=== PATIENT | female | born 1955 | race Caucasian/White ===

== ENCOUNTER 2024-07-14 23:21 | Inpatient (IN) | payer MEDICARE, SELFPAY ==
[2024-07-15 03:25] VITALS: BMI 31.3
[2024-07-15] MEDS ORDERED: Acetaminophen 650 MG Suppository PR PRN (03:43)
[2024-07-15] MEDS ORDERED: Ondansetron ODT 4 MG TAB PO PRN (03:43)
[2024-07-15] MEDS ORDERED: Ondansetron PF 4 MG/2 ML Vial IVP PRN (03:43)
[2024-07-15] MEDS ORDERED: Acetaminophen 325 MG TAB PO PRN (03:43)
[2024-07-15] MEDS ORDERED: Ipratropium/Albuterol 3 ML NEB EZPAP PRN (03:49)
[2024-07-15] MEDS ORDERED: Ipratropium/Albuterol 3 ML NEB NEB PRN (03:49)
[2024-07-15 04:27] LABS: #Basophils Less than 0.03 10x3/uL (0.0-0.2); #Eosinophils Less than 0.03 10x3/uL (0.0-0.7); %Basophils 0.1 % (0.0-1.0); %Lymphocytes 6.6 % (21.0-51.0); %Monocytes 1.1 % (0.0-10.0); %Neutrophils 91.1 % (42.0-75.0); Hematocrit 42.5 % (36.0-47.0); Hemoglobin 13.7 g/dL (12.0-16.0); Mean Corpuscular HGB CONC 32.2 g/dL (32.0-36.0); Mean Corpuscular Hemoglobin 28.8 pg (27.0-31.0); Mean Corpuscular Volume 89.3 fL (78.0-98.0); Mean Platelet Volume 9.9 fL (7.4-10.4); Platelet Count 356 10x3/uL (130-400); RBC Distribution Width 14.8 % (11.5-14.5); Red Blood Cell (RBC) Count 4.76 mill/uL (4.20-5.40)
[2024-07-15 04:51] LABS: Anion Gap 14 mmol/L (10-20); BUN (Urea Nitrogen) 25 mg/dL (9.8-20.1); Calc. Creatinine Clearance 47 mL/min (70-130); Calcium 8.7 mg/dL (7.8-10.44); Carbon Dioxide 17 mmol/L (23-31); Chloride 104 mmol/L (98-107); Estimated GFR 45; Glucose 160 mg/dL (80-115); Potassium 4.3 mmol/L (3.5-5.1); Sodium 131 mmol/L (136-145)
[2024-07-15 05:52] LABS: Troponin I 2.877 ng/mL (< 0.028)
[2024-07-15] MEDS: Famotidine/PF 20 mg/2ml Vial SLOW IVP SCH (07:18)
[2024-07-15] MEDS: Ipratropium/Albuterol 3 ML NEB NEB SCH (07:44)
[2024-07-15] MEDS: Mometasone 200 MCG/Formoterol 5 MCG 120 PUFF INHALER INH SCH (07:46)
[2024-07-15 08:03] LABS: Hematocrit 41.1 % (36.0-47.0); Hemoglobin 13.4 g/dL (12.0-16.0); Platelet Count 361 10x3/uL (130-400)
[2024-07-15 08:34] LABS: Troponin I 2.657 ng/mL (< 0.028)
[2024-07-15] MEDS ORDERED: Iopamidol-370 76% 500 ML MDV (1 ML CHARGE) ONE (09:09)
[2024-07-15] MEDS: Furosemide 40 MG (4 mL) VIAL SLOW IVP SCH ×2 (09:10→16:01)
[2024-07-15] MEDS: Aspirin Chewable 81 MG TAB PO SCH (09:10)
[2024-07-15] MEDS: Famotidine 20 MG TAB PO SCH (09:10)
[2024-07-15] MEDS: Doxycycline 100 MG CAP PO SCH (09:10)
[2024-07-15 09:17] LABS: Actual Bicarbonate (HCO3a) 18.7 mEq/L (22-28); Base Excess (BEa) -7.2 mEq/L (-2.0 to +3.0); CO2 Tension 39.2 mmHg (35.0-45.0); Calcium, Ionized (arterial) 1.16 mmol/L (1.12-1.30); Carboxyhemoglobin (COHb) 0.5 gm% (0.0-3.0); Hematocrit-ABG 42 % (36.0-47.0); Hemoglobin (Hb) 14.3 g/dL (12.0-16.0); Potassium - ABG Lab 4.52 mmol/L (3.70-5.30); pH, Arterial 7.297 (7.35-7.45)
[2024-07-15 09:21] LABS: Puncture Site Right Brachial art
[2024-07-15] MEDS: Heparin 25,000 units/D5W 500 ML IVPB SCH (09:22)
[2024-07-15] MEDS: Heparin 10,000 UNITS/ 10 ML VIAL SLOW IVP SCH (09:22)
[2024-07-15] MEDS: ALPRAZolam 0.5 MG TAB PO SCH (10:33)
[2024-07-15 14:21] LABS: Critical Call Chem Troponin I RESULT DECREASING
[2024-07-15 20:41] LABS: Critical Call Chem Troponin I RESULT DECREASING; Troponin I 2.055 ng/mL (< 0.028)
[2024-07-15] MEDS ORDERED: Azithromycin 500 MG in Sodium Chloride 0.9% 250 ML 250 ML IVPB SCH (21:00)
[2024-07-15] MEDS: Guaifenesin DM 100-10/5 ML UDCUP PO PRN (21:21)
[2024-07-15] MEDS: cefTRIAXone\\ROCEPHIN 1 GM in Sodium Chloride 0.9% 100 ML IVPB SCH (21:21)
[2024-07-15] MEDS: hydrOXYzine 25 MG TAB PO PRN (21:21)
[2024-07-16 04:36] LABS: #Basophils Less than 0.03 10x3/uL (0.0-0.2); #Eosinophils Less than 0.03 10x3/uL (0.0-0.7); %Basophils 0.1 % (0.0-1.0); %Lymphocytes 4.6 % (21.0-51.0); %Monocytes 6.7 % (0.0-10.0); %Neutrophils 87.8 % (42.0-75.0); Hematocrit 39.6 % (36.0-47.0); Hemoglobin 12.8 g/dL (12.0-16.0); Mean Corpuscular HGB CONC 32.3 g/dL (32.0-36.0); Mean Corpuscular Hemoglobin 28.4 pg (27.0-31.0); Mean Platelet Volume 9.8 fL (7.4-10.4); Platelet Count 323 10x3/uL (130-400); RBC Distribution Width 14.8 % (11.5-14.5)
[2024-07-16 05:02] LABS: Anion Gap 14 mmol/L (10-20); BUN (Urea Nitrogen) 33 mg/dL (9.8-20.1); Calc. Creatinine Clearance 40 mL/min (70-130); Calcium 7.9 mg/dL (7.8-10.44); Carbon Dioxide 21 mmol/L (23-31); Chloride 99 mmol/L (98-107); Estimated GFR 37; Glucose 108 mg/dL (80-115); Sodium 130 mmol/L (136-145)
[2024-07-16] MEDS ORDERED: Communication Order-Pharmacy FS PRN (09:00)
[2024-07-16] MEDS: Famotidine 20 MG TAB PO SCH (09:11)
[2024-07-16] MEDS: FLUoxetine HCl 20 MG CAP PO SCH (09:11)
[2024-07-16] MEDS: Famotidine/PF 20 mg/2ml Vial SLOW IVP SCH (09:11)
[2024-07-16] MEDS: Metoprolol Tartrate 25 MG TAB PO SCH (09:14)
[2024-07-16] MEDS: Atorvastatin Calcium 40 MG TAB PO SCH (10:06)
[2024-07-16] MEDS ORDERED: Adenosine 6 mg (2 mL) VIAL ONE (10:09)
[2024-07-16] MEDS ORDERED: Midazolam HCl 2 mg/2 ml Vial ONE (10:09)
[2024-07-16] MEDS ORDERED: Verapamil 5 MG/2 ML VIAL ONE (10:09)
[2024-07-16] MEDS ORDERED: fentaNYL 50 mcg/mL 1 mL Vial ONE (10:09)
[2024-07-16] MEDS ORDERED: Heparin 10,000 UNITS/ 10 ML VIAL ONE (10:09)
[2024-07-16] MEDS ORDERED: niCARdipine 25 MG/10 ML SDV ONE (10:09)
[2024-07-16] MEDS ORDERED: Atropine Sulfate 1 mg/10 ml Syringe ONE (10:09)
[2024-07-16] MEDS ORDERED: Nitroglycerin 50 MG/250 ML BOT 250 ML ONE (10:10)
[2024-07-16] MEDS ORDERED: Iopamidol 370 76% 100 ML VIAL ONE (10:49)
[2024-07-16] MEDS ORDERED: Sodium Chloride 0.9% 200 ML IV PRN (12:00)
[2024-07-16] MEDS ORDERED: Nitroglycerin 0.4 MG TAB (25 Tab Bottle) SL PRN (12:00)
[2024-07-16] MEDS: Nicotine 14 MG PATCH TD PRN (14:10)
[2024-07-16] MEDS: Acetaminophen/Codeine 30-300mg Tablet PO PRN (21:11)
[2024-07-16] MEDS: Sacubitril 24MG/Valsartan 26 MG TAB PO SCH (21:11)
[2024-07-17 04:49] LABS: #Basophils Less than 0.03 10x3/uL (0.0-0.2); #Eosinophils Less than 0.03 10x3/uL (0.0-0.7); %Basophils 0.1 % (0.0-1.0); %Lymphocytes 7.6 % (21.0-51.0); %Monocytes 9.9 % (0.0-10.0); %Neutrophils 81.7 % (42.0-75.0); Hematocrit 39.5 % (36.0-47.0); Hemoglobin 12.8 g/dL (12.0-16.0); Mean Corpuscular HGB CONC 32.4 g/dL (32.0-36.0); Mean Corpuscular Hemoglobin 28.6 pg (27.0-31.0); Mean Corpuscular Volume 88.4 fL (78.0-98.0); Mean Platelet Volume 9.9 fL (7.4-10.4); Platelet Count 294 10x3/uL (130-400); Red Blood Cell (RBC) Count 4.47 mill/uL (4.20-5.40)
[2024-07-17 05:01] LABS: Anion Gap 16 mmol/L (10-20); BUN (Urea Nitrogen) 31 mg/dL (9.8-20.1); Calc. Creatinine Clearance 50 mL/min (70-130); Carbon Dioxide 18 mmol/L (23-31); Chloride 103 mmol/L (98-107); Potassium 4.1 mmol/L (3.5-5.1); Sodium 133 mmol/L (136-145)
[2024-07-17 05:02] LABS: Calcium 7.6 mg/dL (7.8-10.44); Estimated GFR 49; Glucose 83 mg/dL (80-115)
[2024-07-17 08:11] LABS: Hematocrit 40.7 % (36.0-47.0); Hemoglobin 13.3 g/dL (12.0-16.0); Platelet Count 289 10x3/uL (130-400)
[2024-07-17] MEDS: Metoprolol Succinate XL 50 MG ER.TAB PO SCH (09:25)
[2024-07-17] MEDS: Dapagliflozin Propanediol 10 MG TAB PO SCH (09:26)
[2024-07-17] MEDS: Furosemide 40 MG TAB PO SCH (09:26)
[2024-07-17] MEDS: Acetaminophen/Codeine 30-300mg Tablet PO PRN (09:26)
[2024-07-18] MEDS ORDERED: Metoprolol Succinate XL 50 MG ER.TAB PO SCH (06:57)
[2024-07-18 10:10] LABS: #Basophils Less than 0.03 10x3/uL (0.0-0.2); #Eosinophils Less than 0.03 10x3/uL (0.0-0.7); %Basophils 0.1 % (0.0-1.0); %Monocytes 9.5 % (0.0-10.0); %Neutrophils 78.8 % (42.0-75.0); Hematocrit 42.6 % (36.0-47.0); Hemoglobin 13.9 g/dL (12.0-16.0); Mean Corpuscular HGB CONC 32.6 g/dL (32.0-36.0); Mean Corpuscular Hemoglobin 28.6 pg (27.0-31.0); Mean Corpuscular Volume 87.7 fL (78.0-98.0); Mean Platelet Volume 9.8 fL (7.4-10.4); Platelet Count 315 10x3/uL (130-400); RBC Distribution Width 14.8 % (11.5-14.5); Red Blood Cell (RBC) Count 4.86 mill/uL (4.20-5.40)
[2024-07-18 10:28] LABS: Anion Gap 17 mmol/L (10-20); BUN (Urea Nitrogen) 27 mg/dL (9.8-20.1); Calc. Creatinine Clearance 67 mL/min (70-130); Calcium 7.9 mg/dL (7.8-10.44); Carbon Dioxide 21 mmol/L (23-31); Chloride 101 mmol/L (98-107); Estimated GFR 69; Glucose 71 mg/dL (80-115); Potassium 3.5 mmol/L (3.5-5.1); Sodium 135 mmol/L (136-145)
[2024-07-18] MEDS: FLU (Fluad Triv) TS24-25 (65UP)/MF59C/PF 45 MCG/0.5 ML Syringe IM ONE (11:40)
[2024-07-19 04:29] LABS: Anion Gap 13 mmol/L (10-20); BUN (Urea Nitrogen) 29 mg/dL (9.8-20.1); Calc. Creatinine Clearance 68 mL/min (70-130); Carbon Dioxide 22 mmol/L (23-31); Chloride 101 mmol/L (98-107); Estimated GFR 71; Glucose 100 mg/dL (80-115); Potassium 3.2 mmol/L (3.5-5.1); Sodium 133 mmol/L (136-145)
[2024-07-19 05:21] LABS: Hematocrit 42.8 % (36.0-47.0); Hemoglobin 14.2 g/dL (12.0-16.0); Platelet Count 315 10x3/uL (130-400)
[2024-07-19 15:58] VITALS: BP 121/80; TEMP 98.2
[2024-07-19] MEDS: Potassium Chloride 20 MEQ TAB PO SCH (18:12)
[2024-07-19] MEDS ORDERED: Atorvastatin Calcium 20 MG TAB PO SCH (21:00)
== END 2024-07-19 19:30 | disposition home or self-care (01) | DRG 286 ==
LOC: 2NO 07-15 03:18
PROVIDERS: ADMIT Student in an Organized Health Care Education/Training Program; ATTEND Student in an Organized Health Care Education/Training Program
PROC: 4A033R1 Measurement of Arterial Saturation, Peripheral, Percutaneous Approach (ICD-10-PCS; 2024-07-15)
PROC: 4A023N7 Measurement of Cardiac Sampling and Pressure, Left Heart, Percutaneous Approach (ICD-10-PCS; principal; 2024-07-16)
PROC: B2111ZZ Fluoroscopy of Multiple Coronary Arteries using Low Osmolar Contrast (ICD-10-PCS; 2024-07-16)
DX: I51.81 Takotsubo syndrome (principal); J18.9 Pneumonia, unspecified organism; J96.21 Acute and chronic respiratory failure with hypoxia; J44.0 Chronic obstructive pulmonary disease with (acute) lower respiratory infection; J44.1 Chronic obstructive pulmonary disease with (acute) exacerbation; I42.8 Other cardiomyopathies; I47.10 Supraventricular tachycardia, unspecified; F41.9 Anxiety disorder, unspecified; F32.A Depression, unspecified; F17.200 Nicotine dependence, unspecified, uncomplicated; I25.10 Atherosclerotic heart disease of native coronary artery without angina pectoris; I50.9 Heart failure, unspecified; I11.0 Hypertensive heart disease with heart failure; Z90.710 Acquired absence of both cervix and uterus; Z86.73 Personal history of transient ischemic attack (TIA), and cerebral infarction without residual deficits; Z99.81 Dependence on supplemental oxygen; Z79.899 Other long term (current) drug therapy; Z79.51 Long term (current) use of inhaled steroids
CPT/HCPCS: 36415; 36416; 36600; 71045; 71275; 80048; 82805; 83880; 84484; 85014; 85018; 85025; 85049; 85379; 85730; 93306; 93458; 93798; 94640; 94760; 99152; 99153; C1894; J0153; J0461; J0696; J1644; J1940; J2250; J3010; J7620; Q9967